=== PATIENT | male | born 1975 | race African-American/Black ===

== ENCOUNTER 2019-05-08 07:33 | Emergency (ER) | payer OTHER ==
[2019-05-08 07:56] VITALS: TEMP 97.9; BMI 25.7
[2019-05-08 09:21] LABS: BASO % 1.2 % (0-2.0); EOS % 1.6 % (0-4.5); HEMATOCRIT 31.4 % (35.4-49); HEMOGLOBIN 10.4 GM/dL (11.7-16.9); LYMPH % 33.1 % (8-40); MCH 26.1 pg (25.7-33.7); MCHC 33.2 g/dl (32.0-35.9); MEAN CELL VOLUME 78.7 fl (80-96); MEAN PLT VOLUME 8.2 fl (7.5-11.1); MONO % 6.7 % (3.8-10.2); NEUT % 57.4 % (42.8-82.8); RBC 3.99 M/mm3 (4.00-5.60); RDW 15.9 % (11.9-15.9); WHITE BLOOD COUNT 7.6 K/mm3 (4.0-10.0)
[2019-05-08 09:30] LABS: URINE APPEARANCE CLEAR; URINE BILIRUBIN NEGATIVE (NEGATIVE); URINE COLOR YELLOW; URINE GLUCOSE (UA) NEGATIVE (NEGATIVE); URINE KETONE NEGATIVE (NEGATIVE); URINE LEUK ESTERASE NEGATIVE (NEGATIVE); URINE NITRITE NEGATIVE (NEGATIVE); URINE PROTEIN NEGATIVE (NEGATIVE); URINE UROBILINOGEN 0.2 mg/dL (0.2-1.0)
[2019-05-08 09:41] LABS: PLATELET COUNT 390 K/MM3 (134-434)
[2019-05-08 09:47] LABS: ALBUMIN 3.8 g/dl (3.4-5.0); BILIRUBIN,TOTAL 0.3 mg/dL (0.2-1); BLOOD UREA NITROGEN 9.6 mg/dL (7-18); CALCIUM 9.2 mg/dL (8.5-10.1); CREATININE 0.9 mg/dL (0.55-1.3); TOT PROT 7.3 g/dl (6.4-8.2)
--- NOTE | 2019-05-08 10:50 | PDOC ---
History of Present Illness - General Chief Complaint: Pain Stated Complaint: STOMACH PAIN Time Seen by Provider: 05/08/19 08:36 History Source: Patient Exam Limitations: No Limitations - History of Present Illness Travel History: No Initial Comments: 05/08/19 09:34 43-year-old male presents to ED with complaints of general lysed abdominal sharp full feeling for the past month worsened in severity since this a.m. Patient states [place] here [place] ago and denies any GI history, diarrhea, constipation, bloody stool, nausea, fever or chills. Patient states feels as if it is gas but denies any bloating. Timing/Duration: reports: getting worse, intermittent Quality: reports: moderate, fullness, sharpness Abdominal Pain Onset Location: reports: generalized abdomen Pain Radiation: reports: epigastric Activities at Onset: reports: none Aggravating Factors: improves with: None Alleviating Factors: improves with: None Past History - Travel Traveled outside of the country in the last 30 days: No Close contact w/someone who was outside of country & ill: No - Past Medical History Allergies/Adverse Reactions: Allergies Allergy/AdvReac Type Severity Reaction Status Date / Time No Known Allergies Allergy Verified 05/08/19 07:53 Home Medications: Ambulatory Orders Lisinopril [Prinivil] 10 mg PO DAILY 05/08/19 Pantoprazole Sodium [Protonix] 40 mg PO DAILY #30 tablet. 05/08/19 COPD: No HTN: Yes - Suicide/Smoking/Psychosocial Hx Smoking History: Never smoked Patient Lives Alone: No Review of Systems - Review of Systems Able to Perform ROS?: Yes Constitutional: No: Symptoms Reported HEENTM: No: Symptoms Reported Respiratory: No: Symptoms reported Cardiac (ROS): No: Symptoms Reported ABD/GI: Yes: Abdominal cramping. No: Constipated, Diarrhea, Nausea, Vomiting : No: Symptoms Reported Musculoskeletal: No: Symptoms Reported Integumentary: No: Symptoms Reported Neurological: No: Symptoms reported Endocrine: No: Symptoms Reported Hematologic/Lymphatic: No: Symptoms Reported *Physical Exam - Vital Signs Last Vital Signs Temp Pulse Resp BP Pulse Ox 97.9 F 82 18 123/88 99 05/08/19 07:50 05/08/19 07:50 05/08/19 07:50 05/08/19 07:50 05/08/19 08:39 - Physical Exam General Appearance: Yes: Nourished, Appropriately Dressed. No: Apparent Distress HEENT: negative: Pale Conjunctivae Neck: positive: Supple Respiratory/Chest: positive: Lungs Clear, Normal Breath Sounds. negative: Respiratory Distress, Accessory Muscle Use Cardiovascular: positive: Regular Rhythm, Regular Rate. negative: Murmur Gastrointestinal/Abdominal: positive: Normal Bowel Sounds, Soft. negative: Distended, Tenderness Rectal Exam: positive: normal exam (dark brown stool on withdrawn glove). negative: hemorrhoids Extremity: positive: Normal Inspection Integumentary: positive: Normal Color, Warm, Moist Neurologic: positive: Motor Strength 5/5 (ambulatory) ED Treatment Course - LABORATORY CBC & Chemistry Diagram: 05/08/19 09:10 05/08/19 09:10 - ADDITIONAL ORDERS Additional order review: Laboratory Results 05/08/19 05/08/19 09:10 08:43 Sodium 137 Potassium 4.0 Chloride 105 Carbon Dioxide 28 Anion Gap 3 L BUN 9.6 Creatinine 0.9 Est GFR (CKD-EPI)AfAm 119.97 Est GFR (CKD-EPI)NonAf 103.51 Random Glucose 112 H Calcium 9.2 Total Bilirubin 0.3 AST 13 L ALT 24 Alkaline Phosphatase 81 Total Protein 7.3 Albumin 3.8 Lipase 481 H Urine Color Yellow Urine Appearance Clear Urine pH 7.0 Ur Specific [place] 1.015 Urine Protein Negative Urine Glucose (UA) Negative Urine Ketones Negative Urine Blood Negative Urine Nitrite Negative Urine Bilirubin Negative Urine Urobilinogen 0.2 Ur Leukocyte Esterase Negative 05/08/19 09:10 RBC 3.99 L MCV 78.7 L MCHC 33.2 RDW 15.9 D MPV 8.2 D Neutrophils % 57.4 Lymphocytes % 33.1 Monocytes % 6.7 Eosinophils % 1.6 Basophils % 1.2 - RADIOLOGY Radiology Studies Ordered: Category Date Time Status ABDOMEN FLAT & UPRIGHT [RAD] Stat Radiology 05/08/19 08:46 Taken ABDOMEN US -LIMITED [US] Stat Ultrasound 05/08/19 09:52 Ordered Medical Decision Making - Medical Decision Making 05/08/19 10:00 CC: gen abd sharp full feeling x 1 month. Patient has no other associated symptoms. 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 Exam: vital signs stable. No reproducible tenderness Plan: Labs, urine and KUB 05/08/19 10:52 Laboratory Tests 01/19/19 05/08/19 05/08/19 10:30 09:10 09:10 WBC 7.6 RBC 3.99 L Hgb 14.4 10.4 L Hct 43.7 31.4 L D MCV 78.7 L Absolute Neuts (auto) 4.3 Lymphocytes % 33.1 Lipase 481 H Stool Occult Blood 05/08/19 10:25 WBC RBC Hgb Hct MCV Absolute Neuts (auto) Lymphocytes % Lipase Stool Occult Blood Pending Patient ordered for a gallbladder ultrasound along with stool for occult blood testing 05/08/19 10:56 Laboratory Tests 05/08/19 10:25 Stool Occult Blood Positive Ultrasound shows the pancreas is normal size and texture with no pancreatic masses identified. The tail of the pancreas was not well visualized due to or overlying bowel gas. There is no evidence of hydronephrosis or acute abnormalities of the right kidney. The gallbladder isn't normal size and free of I with no evidence of intraoral extrahepatic biliary duct dilatation. 05/08/19 11:21 In light of decrease in H&H and abdominal pain. Patient with likely bleeding ulcer and will be given protonic's along with referral to class b driver. Patient denies alcohol use or NSAID use. When questioning about previous discomfort, patient states he did have a burning sensation to the area prior to the abdominal pain approximately 4 months ago but went away after drinking milk. *DC/Admit/Observation/Transfer Diagnosis at time of Disposition: Abdominal pain - Discharge Dispostion Disposition: HOME Condition at time of disposition: Good - Prescriptions Prescriptions: Pantoprazole Sodium [Protonix] 40 mg PO DAILY #30 tablet.dr - Referrals Referrals: ON STAFF,NOT [Primary Care Provider] - Joseph Miller MD [Staff Physician] - - Patient Instructions Printed Discharge Instructions: DI for Gastroesophageal Reflux Disease (GERD) Additional Instructions: At this time I do believe you have a gastric ulcer which has caused a decrease in your hemoglobin and hematocrit. I am prescribing you protonix along with giving you a referral to a class b driver. If your symptoms worsen prior to plan with the class b driver, please return to the ED immediately. - Post Discharge Activity
[2019-05-08 11:34] VITALS: BP 157/93; PULSE 79
== END 2019-05-08 11:30 | disposition home or self-care (01) ==
LOC: JER 07:33
DX: R10.84 Generalized abdominal pain (principal); I10 Essential (primary) hypertension
CPT/HCPCS: 36415; 74019-TC-FY; 76705-TC; 80053; 81003; 82272; 83690; 85025; 87086; 99282-25